=== PATIENT | male | born 1975 | race Caucasian/White ===

== ENCOUNTER → 2016-12-28 | Outpatient (CLI) | payer OTHER ==
[2016-12-28 14:52] LABS: HEMOGLOBIN 17.6 g/dL (14.1-18.0); LYMPH # 3.2 K/mm3 (0.7-4.5); LYMPH % 39.5 % (10-50)
[2016-12-28 15:28] LABS: BUN 16 mg/dL (7-18)
[2016-12-28 15:29] LABS: GFR (ESTIMATED) 93 ML/MIN (>60)
== END ==
LOC: LAB 14:19
PROVIDERS: Nurse Practitioner Acute Care
DX: R94.5 Abnormal results of liver function studies (principal)